=== PATIENT | male | born 1995 | race African-American/Black ===

== ENCOUNTER 2020-02-12 21:15 | Emergency (ER) | payer MEDICAID ==
[~2020-02-12] VITALS: Ht 188 cm; Wt 67.0 kg
[2020-02-12 22:26] VITALS: BP 128/67
[2020-02-12] MEDS ORDERED: AZITHROMYCIN 500 MG TABLET PO ONE (22:45)
[2020-02-12] MEDS ORDERED: CEFTRIAXONE SODIUM 500 MG/VIAL IM ONE (22:45)
[2020-02-12] MEDS ORDERED: LIDOCAINE HCL 1% 20ML VIAL (Pyxis) INJ INFIL ONE (22:45)
[2020-02-12 22:50] LABS: CLARITY URINE CLOUDY (CLEAR); COLOR URINE YELLOW (YELLOW); KETONES URINE TRACE (NEGATIVE); LEUKOCYTE ESTERASE URINE 3+ (NEGATIVE); NITRITE URINE NEGATIVE (NEGATIVE); OCCULT BLOOD URINE TRACE (NEGATIVE); PROTEIN URINE TRACE (NEGATIVE); SPECIFIC GRAVITY URINE 1.021 (1.005-1.030)
== END 2020-02-12 23:30 | disposition home or self-care (01) ==
LOC: ER 21:15
DX: A54.01 Gonococcal cystitis and urethritis, unspecified (principal); Z72.51 High risk heterosexual behavior
CPT/HCPCS: 81003; 87086; 96372; 99283; J0696; J3490